=== PATIENT | female | born 1995 | race Hispanic/Latino ===

== ENCOUNTER 2024-06-05 20:57 | Day surgery (SDC) | payer OTHER ==
[2024-06-05 21:16] VITALS: BMI 42.2
== END 2024-06-05 22:22 | disposition home or self-care (01) ==
LOC: CSHLD/OP 20:57
PROVIDERS: ATTEND Obstetrics & Gynecology
DX: O99.891 Other specified diseases and conditions complicating pregnancy (principal); R10.2 Pelvic and perineal pain; Z79.899 Other long term (current) drug therapy; Z3A.37 37 weeks gestation of pregnancy
CPT/HCPCS: 99282